=== PATIENT | female | born 1980 | race American Indian/Alaskan Native ===

== ENCOUNTER 2018-06-05 11:13 | Outpatient (CLI) | payer BC | END 2018-06-05 11:14 | disposition home or self-care (01) | LOC: LAB 11:13 | PROVIDERS: ATTEND Obstetrics & Gynecology | DX: Z01.419 Encounter for gynecological examination (general) (routine) without abnormal findings (principal) | CPT/HCPCS: 36415 ==

== ENCOUNTER 2018-06-13 10:31 | Outpatient (CLI) | payer BC ==
--- NOTE | 2018-06-13 16:07 | Mammography Report ---
BILATERAL DIGITAL DIAGNOSTIC MAMMOGRAM with CAD and RIGHT BREAST ULTRASOUND: 06/13/18 CLINICAL: A right breast lump felt by her doctor. It is described to be in the lower outer quadrant and she does not feel a lump. COMPARISON:None. These are baseline studies. FINDINGS: The breasts are heterogeneously dense, which may obscure small masses. A right retroareolar asymmetry persists on a spot MLO compression view.No architectural distortion or suspicious calcifications. The left breast is negative.. Ultrasound of the right breast (including all four quadrants and the retroareolar area) was performed and demonstrated normal fibroglandular and fatty structures. No mass, cyst or shadowing and no ultrasound finding to correlate with the mammographic asymmetry on the right MLO view. IMPRESSION: A probably benign right mammographic asymmetry with a negative ultrasound. Negative left breast. BI-RADS CATEGORY: 3 - - Probably Benign RECOMMENDATION: 6 month followup right mammogram and right breast ultrasound if needed. ACR BI-RADS MAMMOGRAPHIC CODES: 0 = Needs additional imaging evaluation; 1 = Negative; 2 = Benign; 3 = Probably benign; 4 = Suspicious; 5 = Malignant; 6 = Known biopsy-proven malignancy COMMENT: 1. Dense breast tissue, i.e., adenosis, fibrocystic changes, etc., may obscure an underlying neoplasm. 2. Approximately 10% of cancers are not detected with mammography. 3. A negative mammography report should not delay biopsy if a clinically suspicious mass is present. COMMENT: Patient follow-up letters are generated by our [employer] application.
== END 2018-06-13 10:32 | disposition home or self-care (01) ==
LOC: MAMMO 10:31
PROVIDERS: ATTEND Obstetrics & Gynecology
DX: N63.13 Unspecified lump in the right breast, lower outer quadrant (principal)
CPT/HCPCS: 77066

== ENCOUNTER 2018-06-19 07:32 | Outpatient (CLI) | payer BC ==
[2018-06-19 08:10] LABS: Alanine Aminotransferase < 5 units/L (7-56); Albumin 4.1 g/dL (3.9-5); BUN/Creatinine Ratio 22; Blood Urea Nitrogen 11 mg/dL (7-17); Calcium 8.7 mg/dL (8.4-10.2); Chol/HDL Ratio 2.44 %; HDL Cholesterol 77 mg/dL (40-59); Hemolysis Index 1; LDL Cholesterol,Direct 120 mg/dL (50-130)
[2018-06-19 08:15] LABS: Basophils % (Auto) 0.6 % (0.0-1.8); Eosinophils # (Auto) 0.1 K/mm3 (0.0-0.4); Eosinophils % (Auto) 2.8 % (0.0-4.3); Hematocrit 29.1 % (30.3-42.9); Hemoglobin 9.6 gm/dl (10.1-14.3); Lymphocytes # (Auto) 1.3 K/mm3 (1.2-5.4); Lymphocytes % (Auto) 42.6 % (13.4-35.0); Mean Corpuscular HGB Conc 33 % (30-34); Mean Corpuscular Volume 79 fl (79-97); Monocytes # (Auto) 0.3 K/mm3 (0.0-0.8); Monocytes % (Auto) 9.6 % (0.0-7.3); Platelet Count 268 K/mm3 (140-440); Red Blood Count 3.68 M/mm3 (3.65-5.03)
== END 2018-06-19 07:33 | disposition home or self-care (01) ==
LOC: LAB 07:32
PROVIDERS: ATTEND Obstetrics & Gynecology
DX: Z00.8 Encounter for other general examination (principal); D64.9 Anemia, unspecified
CPT/HCPCS: 36415; 80053; 80061; 85025